=== PATIENT | male | born 1990 | race Caucasian/White ===

== ENCOUNTER 2017-12-29 16:23 | Emergency (ER) | payer SELFPAY ==
[2017-12-29 16:42] VITALS: BP 141/98
[2017-12-29] MEDS ORDERED: Ibuprofen TAB* 600 MG PO ONE (16:50)
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
--- NOTE | 2017-12-29 17:34 | RAD ---
INDICATION: Right hand injury. TECHNIQUE: 4 views of the right hand were obtained. FINDINGS: There is dorsal and medial soft tissue swelling. There is a comminuted intra-articular fracture at the base of the fifth metacarpal. There is separation of the fracture fragments. IMPRESSION: COMMINUTED, DISPLACED, INTRA-ARTICULAR FRACTURE BASE OF THE FIFTH METACARPAL.
== END 2017-12-29 17:49 | disposition home or self-care (01) ==
LOC: UCCORT 16:23
DX: S62.316A Displaced fracture of base of fifth metacarpal bone, right hand, initial encounter for closed fracture (principal); W50.0XXA Accidental hit or strike by another person, initial encounter; Y92.9 Unspecified place or not applicable; R03.0 Elevated blood-pressure reading, without diagnosis of hypertension; Z88.3 Allergy status to other anti-infective agents
CPT/HCPCS: 99203; A9270-GY; G0463

== ENCOUNTER 2018-01-06 10:21 | Day surgery (SDC) | payer BC ==
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
[~2018-01-06 10:21] MED LIST: Buffered Lidocaine 0.9% SYRIN* 5 ML/SYR SYRINGE INTRADERM ONE
[2018-01-06] MEDS ORDERED: Clindamycin 900 MG IVPREMIX(* 900 MG/50 ML SDV IV ONE (10:31)
[2018-01-06] MEDS ORDERED: ROPIVACAINE 5 MG/ML 30 ML BTL (0.5%) ONE (11:07)
[2018-01-06] MEDS ORDERED: fentaNYL* 50 MCG/ML 2 ML VIAL (100 MCG VIAL) ONE (11:35)
[2018-01-06] MEDS ORDERED: Midazolam* 1 MG/ML 2 ML VIAL (2 MG) ONE (11:35)
[2018-01-06] MEDS ORDERED: Propofol* 10 MG/ML 20 ML BTL IV PUSH ONE (11:53)
[2018-01-06] MEDS ORDERED: Lidocaine 2% PF * 5 ML VIAL ONE (11:53)
[2018-01-06] MEDS ORDERED: Dexamethasone IV* 4 MG/ML 1 ML (4 MG) ONE (11:53)
[2018-01-06] MEDS ORDERED: Ondansetron INJ* 2 MG/ML VIAL ONE (11:53)
[2018-01-06] MEDS ORDERED: HYDROmorphone INJ* 0.5 MG/0.5 ML SYRINGE ONE (12:45)
[2018-01-06 13:05] VITALS: BP 131/81
[2018-01-06] MEDS ORDERED: Ibuprofen TAB* 600 MG ONE (13:10)
[2018-01-06] MEDS ORDERED: HYDROcodone/ACETAMIN 5-325 MG* 1 TAB PO PRN (13:15)
[2018-01-06] MEDS ORDERED: HYDROmorphone INJ* 1 MG/ML CARPUJECT SYRINGE IV PRN (13:15)
[2018-01-06] MEDS ORDERED: Naloxone* 0.4 MG/ML 1 ML VIAL IV PRN (13:15)
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
--- NOTE | 2018-01-07 10:32 | RAD ---
INDICATION: Right hand trauma COMPARISONS: December 29, 2017 TECHNIQUE: Fluoroscopy was provided for a surgical procedure. Total fluoroscopy time is: 2 minutes, 57 seconds FINDINGS: Spot images demonstrate percutaneous fixation of the base of the fifth metacarpal. IMPRESSION: FLUOROSCOPY WAS PROVIDED FOR A SURGICAL PROCEDURE CPT II Codes: G9500
== END 2018-01-06 13:29 | disposition home or self-care (01) ==
LOC: OREAST 10:21
PROVIDERS: ATTEND Orthopaedic Surgery
DX: S62.316A Displaced fracture of base of fifth metacarpal bone, right hand, initial encounter for closed fracture (principal); I10 Essential (primary) hypertension; J45.909 Unspecified asthma, uncomplicated; W22.8XXA Striking against or struck by other objects, initial encounter; Y92.9 Unspecified place or not applicable
CPT/HCPCS: 76000; A9270-GY; C1776; J1100; J1170; J2250; J2405; J2704; J2795; J3010